=== PATIENT | female | born 1990 | race Caucasian/White ===

== ENCOUNTER → 2023-10-05 06:17 | Day surgery (SDC) | payer OTHER, SELFPAY | LOC: GI 06:17 | PROVIDERS: ATTENDING PHYSICIAN Internal Medicine Gastroenterology | DX: K50.112 Crohn's disease of large intestine with intestinal obstruction (principal); K62.89 Other specified diseases of anus and rectum; Z90.49 Acquired absence of other specified parts of digestive tract; Z98.0 Intestinal bypass and anastomosis status | CPT/HCPCS: 45380; 88305 ==

== ENCOUNTER → 2024-02-10 06:25 | Day surgery (SDC) | payer OTHER, SELFPAY | LOC: GI 06:25 | PROVIDERS: ATTENDING PHYSICIAN Surgery | DX: R10.9 Unspecified abdominal pain (principal); K56.699 Other intestinal obstruction unspecified as to partial versus complete obstruction | CPT/HCPCS: 45330 ==

== ENCOUNTER 2024-07-14 06:06 | Inpatient (IN) | payer OTHER, SELFPAY ==
[2024-07-04 11:24] LABS: Hematocrit 34.5 % (37.0-47.0); Hemoglobin 10.2 g/dL (12.0-16.0); Mean Corp Hgb Conc. 29.6 g/dL (33.0-37.0); Mean Corpuscular Hgb 26.2 pg (27.0-31.0); Mean Corpuscular Volume 88.7 fL (81.0-99.0); Mean Platelet Volume 9.4 fL (7.4-10.4); Platelet Count 402 10^3/uL (130-400); Red Blood Cell Count 3.89 10^6/uL (4.20-5.40); White Blood Cell Count 4.7 10^3/uL (4.8-10.8)
[2024-07-04 11:41] LABS: APTT 30.2 Sec (23.4-35.0); INR 0.95
[2024-07-04 11:56] LABS: ALT (SGPT) 21 U/L (0-35); AST (SGOT) 28 U/L (14-36); Albumin 4.9 g/dl (3.5-5.0); Alkaline Phosphatase 51 U/L (38-126); Blood Urea Nitrogen 17 mg/dl (7-17); Calcium 9.2 mg/dl (8.4-10.2); Carbon Dioxide 27 mmol/L (22-30); Chloride 103 mmol/L (98-107); Glucose 85 mg/dl (70-99); Potassium 4.1 mmol/L (3.5-5.1); Sodium 138 mmol/L (135-145); Total Bilirubin 0.5 mg/dl (0.2-1.3); eGFR > 60.00
[2024-07-04 12:40] VITALS: BMI 19.2
[2024-07-04 13:06] LABS: Glycohemoglobin (HgbA1c) 5.3 % (4.0-5.6)
[2024-07-14] VITALS (19 sets, daily range): BP systolic 91–109; BP diastolic 58–74; BMI 19.2
[2024-07-14] MEDS: NEURONTIN 600 MG PO (06:50)
[2024-07-14] MEDS: TYLENOL 1000 MG PO (06:50)
[2024-07-14] MEDS: ENTEREG 12 MG PO (06:50)
[2024-07-14] MEDS: NORMOSOL-R/PLASMALYTE-A 1000 IV ×2 (06:51→14:58)
--- NOTE | 2024-07-14 09:37 | W.IMMPOSTOP ---
Surgical Immed Post Op Note
-
Primary Surgeon: Jono Veloz MD
Assisting Surgeon: Caitlyn FRAUSTO
Pre-op Diagnosis: colostomy stenosis
Post-op Diagnosis: same
Procedure Performed: 1) colostomy revision 2) flexible sigmoidoscopy (through revised stoma)
Anesthesia Type: general plus local
Specimen / Cultures: colostomy (estimate 8 cm or so in total length)
Estimated Blood Loss: 10 cc
Complications: no immediate
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
Jacobsen in bladder.
Will send to med surg.
[2024-07-14] MEDS: TORADOL 15 MG IV ×3 (10:40→22:17)
[2024-07-14 10:46] LABS: % Basophils 0.2 % (0-2); % Eosinophils 0.7 % (0-6); % Immature Granulocytes 0.4 % (0-0.5); % Lymphocytes 12.2 % (20.5-51.1); % Monocytes 2.8 % (1.7-9.3); % Neutrophils 83.7 % (42.2-75.2); Absolute Lymphocytes 0.7 10^3/uL (1.2-3.4); Absolute Monocytes 0.2 10^3/uL (0.1-0.6); Absolute Neutrophils 4.5 10^3/uL (1.4-6.5); Hematocrit 31.8 % (37.0-47.0); Hemoglobin 9.6 g/dL (12.0-16.0); Mean Corp Hgb Conc. 30.2 g/dL (33.0-37.0); Mean Corpuscular Hgb 25.4 pg (27.0-31.0); Mean Corpuscular Volume 84.1 fL (81.0-99.0); Mean Platelet Volume 9.6 fL (7.4-10.4); Nucleated Red Blood Cells % 0 %; Platelet Count 245 10^3/uL (130-400); Red Blood Cell Count 3.78 10^6/uL (4.20-5.40); Red Cell Dist. Width 14.7 % (11.5-14.5); White Blood Cell Count 5.4 10^3/uL (4.8-10.8)
[2024-07-14 10:54] LABS: Blood Urea Nitrogen 19 mg/dl (7-17); Calcium 7.9 mg/dl (8.4-10.2); Carbon Dioxide 23 mmol/L (22-30); Chloride 103 mmol/L (98-107); Estimated Creatinine Clearance 98 ml/min; Glucose 121 mg/dl (70-99); Potassium 4.4 mmol/L (3.5-5.1); Sodium 137 mmol/L (135-145); eGFR > 60.00
--- NOTE | 2024-07-14 15:24 | PTCARENOTE ---
Recevied patient from PACU via stretcher around 1435 in stable condition. Colostomy stoma pink and budded draining serosanguineous drainage. Patient denies pain. DTV. Patient oriented to room. Call sweet in reach.
[2024-07-15 02:40] VITALS: BP 95/57
[2024-07-15] MEDS: NORMOSOL-R/PLASMALYTE-A 1000 IV (03:51)
[2024-07-15] MEDS: TORADOL 15 MG IV ×4 (03:51→21:42)
[2024-07-15 06:29] VITALS: BMI 19.2
[2024-07-15 06:44] LABS: % Basophils 0.1 % (0-2); % Eosinophils 0.6 % (0-6); % Immature Granulocytes 0.3 % (0-0.5); % Lymphocytes 13.8 % (20.5-51.1); % Monocytes 12.2 % (1.7-9.3); Absolute Eosinophils 0.1 10^3/uL (0-0.7); Absolute Lymphocytes 1.2 10^3/uL (1.2-3.4); Absolute Monocytes 1.1 10^3/uL (0.1-0.6); Absolute Neutrophils 6.4 10^3/uL (1.4-6.5); Hematocrit 28.8 % (37.0-47.0); Mean Corp Hgb Conc. 31.3 g/dL (33.0-37.0); Mean Corpuscular Hgb 25.8 pg (27.0-31.0); Mean Corpuscular Volume 82.5 fL (81.0-99.0); Mean Platelet Volume 9.5 fL (7.4-10.4); Nucleated Red Blood Cells % 0 %; Platelet Count 255 10^3/uL (130-400); Red Blood Cell Count 3.49 10^6/uL (4.20-5.40); Red Cell Dist. Width 14.7 % (11.5-14.5); White Blood Cell Count 8.8 10^3/uL (4.8-10.8)
[2024-07-15 07:11] LABS: Blood Urea Nitrogen 16 mg/dl (7-17); Calcium 8.1 mg/dl (8.4-10.2); Carbon Dioxide 23 mmol/L (22-30); Chloride 102 mmol/L (98-107); Estimated Creatinine Clearance 97 ml/min; Glucose 94 mg/dl (70-99); Potassium 4.3 mmol/L (3.5-5.1); Sodium 134 mmol/L (135-145); eGFR > 60.00
[2024-07-15 08:15] VITALS: BP 107/67
[2024-07-15] MEDS: ENTEREG 12 MG PO ×2 (08:40→20:24)
[2024-07-15] MEDS: NORMOSOL-R/PLASMALYTE-A IV (10:58)
[2024-07-15 11:40] VITALS: BP 101/68
--- NOTE | 2024-07-15 12:00 | CM ---
Reviewed the chart notes and spoke with the patient at the bedside. Patient is s/p colostomy revision. Full liquid diet today. The patient resides with her spouse in a one story home with one step to enter. The patient has ostomy supplies. No
VN or SNF in the past. [facility] CM continues to be available to patient/family and is monitoring medical plan for needs at discharge.
Plan: Discharge to home when medically stable. Patient's spouse will provide transportation.
--- NOTE | 2024-07-15 12:18 | W.PN.CRS1 ---
Today's Communication / Plan
-
advance to fulls
d/c ivfs
lovenox
Assessment/Plan
-
POD#1 1) colostomy revision 2) flexible sigmoidoscopy (through revised stoma)
-Vitals normal
-Hemoglobin 9.0. Her baseline is between 8 and 10. Trend.
-OOB as tolerated
-Advance to a full liquid diet
-D/C IVFs
-Straight cath PRN
-will reach out to Dr. Red regarding when can restart Rinvoq
-Pain medication: tyelnol/toradol standing, dilaudid PRN
-Start lovenox tonight for DVT prophylaxis, TEDS/SCDS in place
-OR pathology standing
Subjective Data
Procedure
1) colostomy revision 2) flexible sigmoidoscopy (through revised stoma)
Subjective Data
Date of Service: July 15, 2024
Patient states she has no abdominal pain. She denies nausea or vomiting. Her stoma is warm and pink with flatus in the bag. Her only complaint is that she had trouble urinating and when she did she was not sure if she could empty all the way.
Objective Data
-
Vital Signs
Temp Pulse Resp BP Pulse Ox
97.8 F 78 16 107/67 96
07/15/24 08:15 07/15/24 08:15 07/15/24 08:15 07/15/24 08:15 07/15/24 08:15
Intake & Output
07/14/24 07/15/24 07/16/24
06:59 06:59 06:59
Intake Total 1965 / 1965
Output Total 400 / 400 150 / 150
Balance 1565 / 1565 -150 / -150
Intake:
Oral fluids 840 / 840
IV fluids (Total) 1125 / 1125
Output:
Urine, Voided 400 / 400 150 / 150
Other:
Number of approximated MODERATE 1
amounts of urine
Lab Results
07/15/24 06:22
07/15/24 06:22
Physical Exam
-
General: No Acute Distress and AOx3
Abdomen: Soft, Non Distended, Non Tender and Other (Colostomy warm and pink with function)
Skin: Warm and Dry
[2024-07-15 15:30] VITALS: BP 94/62
[2024-07-15] MEDS: LOVENOX 40 MG SC (17:35)
[2024-07-15 23:45] VITALS: BP 95/58
[2024-07-16] MEDS: TORADOL 15 MG IV ×2 (05:14→09:50)
[2024-07-16 06:41] VITALS: BMI 18.8
[2024-07-16 06:47] LABS: % Basophils 0.3 % (0-2); % Eosinophils 1.8 % (0-6); % Immature Granulocytes 0.4 % (0-0.5); % Lymphocytes 19.9 % (20.5-51.1); % Monocytes 13.9 % (1.7-9.3); % Neutrophils 63.7 % (42.2-75.2); Absolute Eosinophils 0.1 10^3/uL (0-0.7); Absolute Lymphocytes 1.3 10^3/uL (1.2-3.4); Absolute Monocytes 0.9 10^3/uL (0.1-0.6); Absolute Neutrophils 4.3 10^3/uL (1.4-6.5); Hematocrit 31.9 % (37.0-47.0); Hemoglobin 9.8 g/dL (12.0-16.0); Mean Corp Hgb Conc. 30.7 g/dL (33.0-37.0); Mean Corpuscular Hgb 26.2 pg (27.0-31.0); Mean Corpuscular Volume 85.3 fL (81.0-99.0); Mean Platelet Volume 9.8 fL (7.4-10.4); Nucleated Red Blood Cells % 0 %; Platelet Count 274 10^3/uL (130-400); Red Blood Cell Count 3.74 10^6/uL (4.20-5.40); White Blood Cell Count 6.7 10^3/uL (4.8-10.8)
[2024-07-16 07:45] VITALS: BP 97/65
[2024-07-16] MEDS: ENTEREG 12 MG PO (09:48)
--- NOTE | 2024-07-16 11:57 | W.PN.CRS1 ---
Today's Communication / Plan
-
Dispo planning
Assessment/Plan
-
34 yo female with a h/o Crohn's with prior colostomy creation and subsequent development of stenosis at the site now POD#2 colostomy revision and flexible sigmoidoscopy (through revised stoma)
AFVSS
Following expected post operative course
Chronic iron def anemia present, stable
Tolerating diet with good bowel recovery
-OOB as tolerated
-Advance to a low residue diet
-Case was d/w GI, ok to restart Rinvoq 14 days post op
-Pain medication: tyelnol/toradol standing, oxycodone PRN (declines narcotics upon dc)
-Lovenox for DVT prophylaxis, TEDS/SCDS in place
-OR pathology standing
discharge later today if tolerating dietary advancements
Subjective Data
Procedure
1) colostomy revision 2) flexible sigmoidoscopy (through revised stoma)
Subjective Data
Date of Service: July 16, 2024
Patient seen and examined at bedside with Dr. Veloz. Denies n/v. Tolerating diet. Stoma with good outputs. Pain minimal, declines narcotics. Voiding well.
Objective Data
-
Vital Signs
Temp Pulse Resp BP Pulse Ox
98.1 F 81 14 97/65 98
07/16/24 07:45 07/16/24 07:45 07/16/24 07:45 07/16/24 07:45 07/16/24 07:45
Intake & Output
07/15/24 07/16/24 07/17/24
06:59 06:59 06:59
Intake Total 1965 / 1965 2865 / 2865
Output Total 400 / 400 985 / 985
Balance 1565 / 1565 1880 / 1880
Intake:
Oral fluids 840 / 840 2520 / 2520
IV fluids (Total) 1125 / 1125 225 / 225
Fecal management system 120 / 120
irrigation (mL)
Colostomy 120 / 120
Output:
Urine, Voided 400 / 400 985 / 985
Other:
Number of approximated MODERATE 2
amounts of urine
Lab Results
07/16/24 06:08
07/15/24 06:22
Physical Exam
-
General: No Acute Distress and AOx3
Abdomen: Soft, Non Distended, Non Tender and Other (Colostomy warm and pink with stool/flatus in bag)
Skin: Warm and Dry
--- NOTE | 2024-07-16 12:29 | CM ---
Met with pt at bedside
For discharge today
Declined HH
Has ride home
Plan - anticipate home no needs
--- NOTE | 2024-07-16 12:36 | W.DCSUMMARY ---
Discharge Summary
Discharge Data
Date of Admission: 07/14/24
Date of Discharge: 07/16/24
-
Pending Results: No
Hospital Course
Ms Grove is a 34 yo female with a history of Crohn's disease and prior colostomy who presented for colostomy revision due to stenosis. She tolerated the procedure well without complication. Diet was able to be advanced and well tolerated prior to
discharge with stool and flatus production noted from stoma. Daily Rinvoq was placed on hold for the 2 weeks following surgery as discussed with her GI provider. She had good control of pain post operatively and declined narcotics upon discharge.
Outpatient follow up planned in the coming weeks with surgical team for continued evaluation.
Discharge Plan
-
Patient Disposition: Home (Routine Discharge)
Discharge Diagnosis/Procedures: colostomy revision
Condition: Good
Diet: Low Residue
Activity: No strenuous activity
Additional Activity: No lifting over 10lbs (gallon of milk)
Driving Restrictions: No driving for 1 week
Bathing Restrictions: OK to Shower
Wound Care: Stoma care as previous. Ok to remove ostomy appliance for showering, you will notice an incision next to your stoma: ok to rinse with soap and water but avoid scrubbing.
Instructions: Low-fiber diet
Referrals:
Leonidas Veloz MD [Active] - in two weeks
Mery Laird CRNP [Family Provider] - in one week
Additional Discharge Medication Instructions: Hold Rinvoq 14 days after your surgery and then resume. If you have any signs of infection or drainage, swelling, or redness, please do not restart Rinvoq and call our office immediately.
Take over the counter Tylenol and Ibuprofen as needed for pain. Follow packaging directions for dosing and frequency.
Prescriptions:
Continued
Align (B.infantis) 4 mg Capsule
4 mg PO DAILY
multivitamin Tablet
1 tab PO DAILY
ascorbic acid (vitamin C) [Vitamin C] 500 mg Tablet
500 mg PO DAILY
ferrous sulfate [iron] 325 mg (65 mg iron) Tablet
325 mg PO DAILY
neomycin 500 mg Tablet
500 mg PO DIRECTED
Held
Rinvoq 30 mg Tablet Extended Release 24 Hr
30 mg PO DAILY
Hold Instructions: Resume on 07/28/24.
Discontinued
Sutab 1.479-0.188- 0.225 gram Tablet
1 tab PO DIRECTED
metronidazole 500 mg Tablet
500 mg PO DIRECTED
Discharge Orders:
Discharge Patient (As Directed); Ordered 07/16/24
Ordered By: Nandini Peñaloza
Discharge Date and Time
Print Language: MOSOT[place]
[2024-07-16 13:17] VITALS: BP 102/70
== END 2024-07-16 13:56 | disposition home or self-care (01) | DRG 330 ==
LOC: 2 SOUTH 06:06
PROVIDERS: Physician Assistant; ADMITTING PHYSICIAN Surgery; FAMILY PHYSICIAN Nurse Practitioner Family
PROC: 0DBN0ZZ Excision of Sigmoid Colon, Open Approach (ICD-10-PCS; 2024-07-14)
PROC: 0DJD8ZZ Inspection of Lower Intestinal Tract, Via Natural or Artificial Opening Endoscopic (ICD-10-PCS; 2024-07-14)
DX: K94.03 Colostomy malfunction (principal); K50.90 Crohn's disease, unspecified, without complications; Y83.8 Other surgical procedures as the cause of abnormal reaction of the patient, or of later complication, without mention of misadventure at the time of the procedure
CPT/HCPCS: 88304; 80048; 80053; 83036; 85025; 85027; 85610; 85730; 86850; 86900; 86901; J1335